=== PATIENT | female | born 1960 | race Caucasian/White ===

== ENCOUNTER → 2018-04-21 | Outpatient (CLI) | payer BC ==
[~2018-04-21] MED LIST: AMOCLA500 PO; AMOCLA875 PO; BUPR150T2; Catapres0.1 MG PO; DIVA250ER; DIVA500EC; ESTR2; HYDACE10B PO; HYDACE5 PO; LEVSOD137; LEVSOD150; LEVSOD175 PO; LEVSOD200; Lomotil Tablet1 EACH PO; META800 PO; NAPR500 PO; OXYACE5T PO; PHENA100 PO; PHENA200 PO; PROM25 PO; PROM25S PR; PSEU30 PO; Zofran Odt4 MG PO
== END ==
LOC: LAB 09:30 → LAB SHORT 09:30
DX: R53.83 Other fatigue (principal)
CPT/HCPCS: 83036

== ENCOUNTER 2018-12-09 16:20 | Observation (INO) | payer BC ==
[~2018-12-09] VITALS: Ht 154.9 cm; Wt 83.5 kg
[~2018-12-09 16:20] MED LIST changes: +LEVSOD125 PO; -LEVSOD175 PO
[2018-12-09] MEDS ORDERED: LAMO100 PO (16:37)
[2018-12-09] MEDS ORDERED: ESOM20 PO (16:37)
[2018-12-09] MEDS ORDERED: Estrace Vagin42.5 GM PV (16:38)
[2018-12-09 17:00] LABS: BASOPHILS ABSOLUTE AUTO 0.06 K/mm3 (0.00-0.23); BASOPHILS PERCENT AUTO 1 % (0-2); EOSINOPHILS ABSOLUTE AUTO 0.17 K/mm3 (0.00-0.68); EOSINOPHILS PERCENT AUTO 2 % (0-6); Hematocrit 43.3 % (33.0-51.0); Hemoglobin 13.7 g/dL (11.5-16.0); IMMATURE GRAN ABSOLUTE AUTO 0.05 K/mm3 (0.00-0.10); IMMATURE GRAN PERCENT AUTO 1 % (0-1); LYMPHOCYTES ABSOLUTE AUTO 3.49 K/mm3 (0.84-5.20); LYMPHOCYTES PERCENT AUTO 32 % (21-46); MONOCYTES ABSOLUTE AUTO 0.83 K/mm3 (0.16-1.47); MONOCYTES PERCENT AUTO 8 % (4-13); Mean Corpuscular HGB Conc 31.6 g/dL (31.5-36.5); Mean Corpuscular Volume 85 fL (80-100); NEUTROPHILS ABSOLUTE AUTO 6.49 K/mm3 (1.96-9.15); NEUTROPHILS PERCENT AUTO 59 % (41-73); Platelet Count 430 K/mm3 (150-400); RDW Coefficient Variation 13.1 % (11.7-14.2); RDW Standard Deviation 40.7 fL (35.1-46.3); Red Blood Cell Count 5.07 M/mm3 (3.80-5.20); White Blood Cell Count 11.09 K/mm3 (4.00-11.30)
[2018-12-09 17:24] LABS: Troponin I <0.015 ng/mL (0.000-0.040)
[2018-12-09 17:34] LABS: Alanine Aminotransfer (ALT/SGP 23 U/L (12-78); Albumin, Blood 4.4 g/dL (3.4-5.0); Albumin/Globulin Ratio 1.2 (0.8-1.8); Alk Phos 109 U/L (50-136); Anion Gap 6 mmol/L (6-16); Aspartate Aminotrans (AST/SGOT 6 U/L (12-37); Bilirubin, Total 0.2 mg/dL (0.1-1.0); Blood Urea Nitrogen 20 mg/dL (8-24); CO2, Blood 29 mmol/L (21-32); Calcium, Blood 9.5 mg/dL (8.5-10.1); Chloride, Blood 106 mmol/L (98-108); Creatinine, Blood 0.57 mg/dL (0.40-1.00); Globulin, Blood 3.8 g/dL (2.2-4.0); Glomerular Filtration Rate >60 (60-); Glucose, Blood 92 mg/dL (70-99); Potassium, Blood 3.8 mmol/L (3.5-5.5); Sodium, Blood 141 mmol/L (136-145); Total Protein, Blood 8.2 g/dL (6.4-8.2)
[2018-12-09 17:56] LABS: Free Thyroxine 1.35 ng/dL (0.70-1.60)
[2018-12-09 17:58] LABS: Thyroid Stimulating Hormone 0.64 uIU/mL (0.360-4.800); Triiodothyronine, Free 2.52 pg/mL (2.18-3.98)
[2018-12-09] MEDS ORDERED: Hydrocodone-Ap1 EA20 PO (18:23)
[2018-12-09] MEDS ORDERED: Bupropion HCl200 MG PO (18:24)
[2018-12-09] MEDS ORDERED: Synthroid137 MCG PO (18:24)
[2018-12-09] MEDS ORDERED: Sudogest30 MG PO (18:25)
[2018-12-09] MEDS ORDERED: Lamictal200 MG PO (18:25)
[2018-12-09] MEDS ORDERED: CYCL10 PO (18:36)
[2018-12-09] MEDS ORDERED: CONEST.625 VAG (18:43)
[2018-12-09] MEDS ORDERED: Flonase 0.05% N16 GM (18:43)
--- NOTE | 2018-12-09 22:30 | NUR ---
ADMISSION PT ARRIVES TO PCU 16 FROM ER VIA [facility]. AOX4. AMBULATES INDEPENDENTLY FROM [facility] TO HOSPITAL BED. VSS. PT DENIES DIZZINESS/LIGHTHEADEDNESS, OR DYSPNEA ON EXERTION. DENIES CHEST PAIN AT THIS TIME. REPORTS THAT CHEST PAIN HAS GONE SINCE NITRO PASTE PLACED- PATCH STILL PLACED TO L CHEST AT THIS TIME. PT REPORTING HEADACHE AND BACK PAIN AT A LEVEL 3/10 ON PAIN SCALE- REQUESTING TYLENOL FOR DISCOMFORT. LUNG SOUNDS CLEAR THROUGHOUT. O2 SATS 96% ON RA. CARDIAC RHYTHM IS NORMAL SINUS WITH RATE OF 74 PER TELEMETRY. TRACE,NON-PITTING EDEMA NOTED TO BILATERAL ANKLES. NO REDNESS OR REPORTED DISCOMFORT TO LLE AT THIS TIME. PT ORIENTED TO ROOM AND CALL LIGHT SYSTEM. ENCOURAGED TO CALL FOR ASSISTANCE WITH AMBULATION APPROPRIATE. WILL CONTINUE WITH ADMISSION AND ASSESSMENT. BED IN LOW POSITION, CALL LIGHT IN REACH.
[2018-12-10 05:19] LABS: Hematocrit 39.7 % (33.0-51.0); Hemoglobin 12.5 g/dL (11.5-16.0); Mean Corpuscular HGB 26.7 pg (26.0-34.0); Mean Corpuscular HGB Conc 31.5 g/dL (31.5-36.5); Mean Corpuscular Volume 85 fL (80-100); Platelet Count 374 K/mm3 (150-400); RDW Coefficient Variation 13.2 % (11.7-14.2); RDW Standard Deviation 40.4 fL (35.1-46.3); Red Blood Cell Count 4.69 M/mm3 (3.80-5.20); White Blood Cell Count 9.82 K/mm3 (4.00-11.30)
[2018-12-10 05:40] LABS: Anion Gap 6 mmol/L (6-16); Blood Urea Nitrogen 19 mg/dL (8-24); Bun/Creatinine Ratio 31.3 (12.0-20.0); CO2, Blood 29 mmol/L (21-32); Calcium, Blood 8.6 mg/dL (8.5-10.1); Chloride, Blood 106 mmol/L (98-108); Creatinine, Blood 0.61 mg/dL (0.40-1.00); Glomerular Filtration Rate >60 (60-); Glucose, Blood 103 mg/dL (70-99); Sodium, Blood 141 mmol/L (136-145); Troponin I <0.015 ng/mL (0.000-0.040)
--- NOTE | 2018-12-10 05:42 | NUR ---
SHIFT SUMMARY PT HAS REMAINED AOX4 THROUGHOUT SHIFT. VSS. PLEASANT AND COOPERATIVE WITH CARE. PT CONTINUES TO AMBULATE INDEPENDENTLY IN THE ROOM WITHOUT DIFFICULTY. DENIES DIZZINESS/LIGHTHEADEDNESS OR DYSPNEA ON EXERTION. DOES REPORT SOME VERY SLIGHT CHEST HEAVINESS WITH ACTIVITY THIS MORNING WHEN WALKING TO RESTROOM. NITRO BID REMOVED @ APPROXIMATELY 0530 THIS AM. PT MEDICATED ONCE FOR CHRONIC BACK PAIN WITH HOME REGIMEN. NO OTHER CHANGES NOTED FROM INITIAL ASSESSMENT. WILL CONTINUE TO MONITOR AND REPORT TO ONCOMING SHIFT RN. BED IN LOW POSITION, CALL LIGHT IN REACH.
--- NOTE | 2018-12-10 16:04 | NUR ---
1602 C/O INCREASING CHEST PRESSURE 3/10, BP 147/83, HR 73. 1 NTG SL GIVEN. 1610 C/O CHEST PRESSURE 1/10, BP 123/68, HR 69. STATES ONLY SLIGHT CHEST PAIN, DESCRIBED MILD AND DIFFUSE.
--- NOTE | 2018-12-10 18:23 | NUR ---
SHIFT SUMMARY PT RESTING IN BED THROUGHOUT THE DAY. VSS. ALERT AND ORIENTED X3. UP TO BATHROOM INDEPENDENTLY. C/O 1-06/23 CHEST TIGHTNESS / PRESSURE THIS AFTERNOON, MEDICATED WITH SL NITROGLYCERIN, WHICH RESOLVED THE PAIN. INSTRUCTED PT TO CALL IF CHEST PAIN RETURNS. NSR RATE 74 PER TELEMETRY. RESTING PORTION OF STRESS TEST COMPLETED TODAY. PT AWARE OF NEED TO BE NPO TOMORROW FOR 2ND PORTION OF STRESS TEST. WILL CONTINUE TO MONITOR.
--- NOTE | 2018-12-10 19:04 | NUR ---
Per admit trigger, I met with Caridad of offer information regarding the benefits of an Advanced Directive. She has reccently and has a blended family now. 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 Provided two information packets. She expresses a deep gabriel in God and allowed me to pray for her at bedside. I will remain available.
[2018-12-11 04:00] LABS: Hematocrit 38.7 % (33.0-51.0); Hemoglobin 12.3 g/dL (11.5-16.0); Mean Corpuscular HGB 27.3 pg (26.0-34.0); Mean Corpuscular HGB Conc 31.8 g/dL (31.5-36.5); Mean Corpuscular Volume 86 fL (80-100); Mean Platelet Volume 9.8 fL (9.1-12.4); Platelet Count 348 K/mm3 (150-400); RDW Coefficient Variation 13.1 % (11.7-14.2); RDW Standard Deviation 40.8 fL (35.1-46.3); Red Blood Cell Count 4.51 M/mm3 (3.80-5.20)
[2018-12-11 04:17] LABS: Albumin, Blood 3.7 g/dL (3.4-5.0); Anion Gap 5 mmol/L (6-16); Blood Urea Nitrogen 18 mg/dL (8-24); Bun/Creatinine Ratio 27.2 (12.0-20.0); CO2, Blood 29 mmol/L (21-32); Calcium, Blood 8.6 mg/dL (8.5-10.1); Chloride, Blood 106 mmol/L (98-108); Cholesterol 217 mg/dL (50-200); Creatinine, Blood 0.66 mg/dL (0.40-1.00); Glomerular Filtration Rate >60 (60-); Glucose, Blood 88 mg/dL (70-99); HDL Cholesterol 43 mg/dL (>39); Low Density Lipoprotein Chol 128 mg/dL (0-110); Phosphorus, Blood 3.7 mg/dL (2.5-4.9); Potassium, Blood 4.4 mmol/L (3.5-5.5); Sodium, Blood 140 mmol/L (136-145); Triglycerides 229 mg/dL (30-160); Very Low Density Lipoprot Chol 45 mg/dL (6-32)
[2018-12-11 04:22] LABS: BASOPHILS PERCENT MAN 0 % (0-2); EOSINOPHILS ABSOLUTE MAN 0.08 K/mm3 (0.00-0.68); EOSINOPHILS PERCENT MAN 1 % (0-6); LYMPHOCYTES ABSOLUTE MAN 3.74 K/mm3 (0.84-5.20); LYMPHOCYTES PERCENT MAN 44 % (21-46); MONOCYTES ABSOLUTE MAN 0.51 K/mm3 (0.16-1.47); MONOCYTES PERCENT MAN 6 % (4-13); NEUTROPHILS ABSOLUTE MAN 4.16 K/mm3 (1.96-9.15); SEG NEUTROPHILS PERCENT MAN 49 % (41-73); TOTAL CELLS COUNTED 100
--- NOTE | 2018-12-11 06:08 | NUR ---
SUMMARY NO ACUTE CHANGES NOTED FROM ASSESSMENT. PT CONTINUS TO HAVE MILD CP, SHE IS RATING IT A 1 OUT OF 10. SHE ATTEMPTED THE GI COCKTAIL IN HOPES TO TO FIND RELIEF BUT IT WAS NOT SUCCESSFUL. CP RELIEVED WITH PO NITRO. VS REMAIN STABLE. PT IS INDEPENDENT IN THE ROOM. VOIDING WNL. CALLS FOR ASSISTANCE PRN. KRZYSZTOF AND REPORT TO DAY RN. CALL LIGHT IN REACH.
--- NOTE | 2018-12-11 08:37 | NUR ---
NURSING PCU DAYSHIFT: Assumed care of pt at approx 0700. A/O, very pleasant, cooperative w/care. Denies any pain/discomfort at this time. Ambulates independently and w/o difficulty. Skin is intact w/no breakdown noted. Tele in place, NSR, no c/o CP/pressure, SBP 130's prior to a.m. meds, no noted edema. L/S cta t/o, O2 sat 99% on RA, denies dyspnea, no noted cough. Abd SNT, BT+, voiding w/o difficulty. PIV x1, s/l. Pt denies any current needs or questions regarding plan of care. 2nd portion of stress test scheduled for this afternoon, plan for NPO after breakfast. Pt OOB to shower at this time, no s/s of acute distress, cont to monitor for any changes.
--- NOTE | 2018-12-11 17:32 | NUR ---
NURSING PCU DAYSHIFT SUMMARY: Second portion of stress test completed as scheduled. Pt tolerated fairly well though reversal medication required. Pt has c/o 1-3/10 CP t/o shift which increases w/activity and improves w/rest, consistent w/pain experienced since admit. C/O occ palpitations, no changes to rhythm noted. VS have remained stable as has respiratory status. Pt OOB to shower this a.m. and has remained independent in room. S/O at bedside this afternoon, update provided. Pt currently sitting on edge of bed for supper, denies any current questions/needs. Page placed to push button switch assembler to provide update. No s/s of acute disterss at this time, call light in reach, cont to monitor until rpt is given to NOC RN.
--- NOTE | 2018-12-11 21:38 | NUR ---
PATIENT REPORTED HAVING THE FLUTTERING FEELING IN HER CHEST. FEELING THOUGH HER HEART WAS BOUNDING. LOOKED AT TELE TO SEE IF THERE WAS ANY CHANGES. PATIENT RATE WAS 66-75 IN SINUS DURING THE TIME PERIOD SHE WAS FEELING IT BOUNDING. PATIENT DENIES ANY PAIN AT THIS TIME. MOVING AROUND INDEPENDENTLY. DENIES ANY NEEDS. STATES SHE WILL NOTIFY STAFF IF SHE HAS ANY PAIN.
--- NOTE | 2018-12-12 05:11 | NUR ---
PATIENT DID NOT CALL TO REPORT ANY CHEST PAIN THROUGH THE NIGHT. WHILE TAKING MORNING VITALS PATIENT STATED THAT WHEN SHE GOT UP TO THE BATHROOM SHE WAS AWARE THERE WAS SOME DISCOMFORT IN HER CHEST BUT IT WENT AWAY ONCE LAYING BACK IN BED AND DID FEEL IT WAS STRONG ENOUGHT TO REPORT. PATIENT INDEPENDENT IN ROOM. VITALS STABLE.
--- NOTE | 2018-12-12 08:57 | NUR ---
NURSING PCU DAYSHIFT: Assumed care of pt at approx 0700. A/O, pleasant, cooperative w/care. Denies any pain/discomfort at rest. Ambulates independently in room w/o difficulty. Skin is intact w/no breakdown noted. Tele in place, NSR, SBP 120's prior to a.m. meds, no noted edema. L/S cta t/o, O2 sat mid 90's on RA, denies dyspnea, no noted cough. Abd SNT, BT hypoactive, c/o mild constipation this a.m., voiding w/o difficulty. PIV x1, s/l. Pt denies any current needs. Expressed concerns regarding CP/pressure experience w/exertion, will attempt ambulating halls this a.m. as patient has had minimal exertion in room. Awaiting rounding from PMD and claim technician, cont to monitor for changes.
[2018-12-12] MEDS ORDERED: ASPI81CH PO (16:01)
[2018-12-12] MEDS ORDERED: ATOR40TA PO (16:01)
[2018-12-12] MEDS ORDERED: METO25 PO (16:02)
[2018-12-12] MEDS ORDERED: Isosorbide Dini30 MG PO (16:02)
--- NOTE | 2018-12-12 17:16 | NUR ---
NURSING PCU DISCHARGE SUMMARY: VS remained stable t/o shift. Pt continued to experience chest pressure w/exertion, improved w/rest. After ambulation around unit, pt became diaphoretic w/nausea along w/increased pressure, again all symptoms improved w/rest. Bottom Scrubber provided w/update regarding pt's status, planned for angio this afternoon. Xfer to HC this afternoon accompanied by staff x2. Returned to room post procedure w/R radial site and arm board in place. VS stable, cardiac and respiratory status unchanged. Site stable w/no bleed or hematoma noted, recovered as per protocol. Pt cleared for discharge by cardiology, PMD updated, discharge home d/o received. Pt verbalized understanding of all written and verbal discharge instructions. PIV dc'd w/cath intact. Rx's called to [facility] per pt request. TR band to be removed at approx 1800 and pt to be discharged at that time. No s/s of acute distress, cont to monitor until discharge is complete.
== END 2018-12-12 18:20 | disposition home or self-care (01) ==
LOC: ER 16:20 → PCU 16:21
PROVIDERS: Internal Medicine; Physician Assistant; ADMIT Internal Medicine
DX: R07.89 Other chest pain (principal); R07.81 Pleurodynia; I25.10 Atherosclerotic heart disease of native coronary artery without angina pectoris; E78.5 Hyperlipidemia, unspecified; E03.9 Hypothyroidism, unspecified; K21.9 Gastro-esophageal reflux disease without esophagitis; F31.9 Bipolar disorder, unspecified; G47.33 Obstructive sleep apnea (adult) (pediatric); M54.9 Dorsalgia, unspecified; G89.4 Chronic pain syndrome; F11.90 Opioid use, unspecified, uncomplicated; E66.9 Obesity, unspecified; Z68.35 Body mass index [BMI] 35.0-35.9, adult; Z99.89 Dependence on other enabling machines and devices; Z88.1 Allergy status to other antibiotic agents; Z88.8 Allergy status to other drugs, medicaments and biological substances; Z79.899 Other long term (current) drug therapy
CPT/HCPCS: 36415; 71046; 71260; 78452; 80048; 80053; 80061; 80069; 83036; 84439; 84443; 84481; 84484; 85007; 85025; 85027; 85347; 93005; 93010; 93017; 93306; 93454; 93571; 93971; 96372; 96374; 96376; 99152; 99153; 99285-25; A9270; A9500; C1769; C1887; C1894; G0378; J0706; J1644; J1650; J2250; J2405; J2785; J3010; J7030; Q9967

== ENCOUNTER → 2020-11-01 | Outpatient (CLI) | payer BC ==
[~2020-11-01] MED LIST changes: +ASPI81CH PO; +ATOR40TA PO; +Bupropion HCl200 MG PO; +CONEST.625 VAG; +CYCL10 PO; +ESOM20 PO; +Estrace Vagin42.5 GM PV; +Flonase 0.05% N16 GM; +Hydrocodone-Ap1 EA20 PO; +Isosorbide Dini30 MG PO; +LAMO100 PO; +Lamictal200 MG PO; +METO25 PO; +Sudogest30 MG PO; +Synthroid137 MCG PO
== END | disposition home or self-care (01) ==
LOC: LAB 12:48 → LAB SHORT 12:48
DX: J02.9 Acute pharyngitis, unspecified (principal)
CPT/HCPCS: 87081

== ENCOUNTER → 2021-04-23 | Outpatient (CLI) | payer BC ==
[2021-04-23 17:04] LABS: C DIFFICILE DNA NEGATIVE (Negative)
== END | disposition home or self-care (01) ==
LOC: LAB SHORT 13:08
PROVIDERS: Physician Assistant
DX: R19.7 Diarrhea, unspecified (principal)
CPT/HCPCS: 87493

== ENCOUNTER → 2021-04-23 | Outpatient (CLI) | payer BC ==
[2021-04-23 11:47] LABS: BASOPHILS ABSOLUTE AUTO 0.04 K/mm3 (0.00-0.23); BASOPHILS PERCENT AUTO 1 % (0-2); EOSINOPHILS ABSOLUTE AUTO 0.09 K/mm3 (0.00-0.68); EOSINOPHILS PERCENT AUTO 1 % (0-6); Hematocrit 40.9 % (33.0-51.0); Hemoglobin 12.9 g/dL (11.5-16.0); IMMATURE GRAN ABSOLUTE AUTO 0.01 K/mm3 (0.00-0.10); IMMATURE GRAN PERCENT AUTO 0 % (0-1); LYMPHOCYTES ABSOLUTE AUTO 2.32 K/mm3 (0.84-5.20); LYMPHOCYTES PERCENT AUTO 34 % (21-46); MONOCYTES ABSOLUTE AUTO 0.43 K/mm3 (0.16-1.47); MONOCYTES PERCENT AUTO 6 % (4-13); Mean Corpuscular HGB 27.7 pg (26.0-34.0); Mean Corpuscular HGB Conc 31.5 g/dL (31.5-36.5); Mean Corpuscular Volume 88 fL (80-100); Mean Platelet Volume 10.3 fL (9.1-12.4); NEUTROPHILS ABSOLUTE AUTO 3.95 K/mm3 (1.96-9.15); NEUTROPHILS PERCENT AUTO 58 % (41-73); Platelet Count 391 K/mm3 (150-400); RDW Coefficient Variation 11.9 % (11.7-14.2); RDW Standard Deviation 38.1 fL (35.1-46.3); Red Blood Cell Count 4.66 M/mm3 (3.80-5.20); White Blood Cell Count 6.84 K/mm3 (4.00-11.30)
[2021-04-23 12:01] LABS: Alanine Aminotransfer (ALT/SGP 25 U/L (12-78); Albumin, Blood 3.7 g/dL (3.4-5.0); Albumin/Globulin Ratio 1.1 (0.8-1.8); Alk Phos 86 U/L (50-136); Anion Gap 5 mmol/L (6-16); Aspartate Aminotrans (AST/SGOT 13 U/L (12-37); Bilirubin, Total 0.5 mg/dL (0.1-1.0); Blood Urea Nitrogen 15 mg/dL (8-24); Bun/Creatinine Ratio 26.1 (12.0-20.0); CO2, Blood 31 mmol/L (21-32); Calcium, Blood 9.1 mg/dL (8.5-10.1); Chloride, Blood 102 mmol/L (98-108); Creatinine, Blood 0.58 mg/dL (0.40-1.00); Globulin, Blood 3.3 g/dL (2.2-4.0); Glomerular Filtration Rate >60 (60-); Glucose, Blood 88 mg/dL (70-99); Potassium, Blood 3.9 mmol/L (3.5-5.5); Sodium, Blood 138 mmol/L (136-145)
== END | disposition home or self-care (01) ==
LOC: LAB SHORT 11:00
PROVIDERS: Physician Assistant
DX: R19.7 Diarrhea, unspecified (principal)
CPT/HCPCS: 80053; 83690; 85025; 87077; 87086; 87186

== ENCOUNTER 2022-01-12 11:08 | Inpatient (IN) | payer BC ==
[~2022-01-12] VITALS: Ht 157.5 cm; Wt 66.4 kg
[~2022-01-12 11:08] MED LIST changes: +BUPROPION HCL200 M2 PO; -Bupropion HCl200 MG PO; -Hydrocodone-Ap1 EA20 PO; +LEVSOD137 PO; -Synthroid137 MCG PO
[2022-01-12 11:57] LABS: BASOPHILS ABSOLUTE AUTO 0.03 K/mm3 (0.00-0.23); BASOPHILS PERCENT AUTO 0 % (0-2); EOSINOPHILS ABSOLUTE AUTO 0.05 K/mm3 (0.00-0.68); EOSINOPHILS PERCENT AUTO 1 % (0-6); Hematocrit 38.1 % (33.0-51.0); Hemoglobin 12.6 g/dL (11.5-16.0); IMMATURE GRAN ABSOLUTE AUTO 0.03 K/mm3 (0.00-0.10); IMMATURE GRAN PERCENT AUTO 0 % (0-1); LYMPHOCYTES ABSOLUTE AUTO 1.16 K/mm3 (0.84-5.20); LYMPHOCYTES PERCENT AUTO 11 % (21-46); MONOCYTES ABSOLUTE AUTO 0.98 K/mm3 (0.16-1.47); MONOCYTES PERCENT AUTO 9 % (4-13); Mean Corpuscular HGB 28.6 pg (26.0-34.0); Mean Corpuscular HGB Conc 33.1 g/dL (31.5-36.5); Mean Corpuscular Volume 86 fL (80-100); Mean Platelet Volume 10.1 fL (9.1-12.4); NEUTROPHILS ABSOLUTE AUTO 8.58 K/mm3 (1.96-9.15); NEUTROPHILS PERCENT AUTO 79 % (41-73); Platelet Count 278 K/mm3 (150-400); RDW Coefficient Variation 12.1 % (11.7-14.2); RDW Standard Deviation 38.4 fL (35.1-46.3); Red Blood Cell Count 4.41 M/mm3 (3.80-5.20); White Blood Cell Count 10.83 K/mm3 (4.00-11.30)
[2022-01-12 13:08] LABS: Albumin, Blood 3.5 g/dL (3.4-5.0); Albumin/Globulin Ratio 0.9 (0.8-1.8); Bilirubin, Total 1.7 mg/dL (0.1-1.0); Bun/Creatinine Ratio 20.1 (12.0-20.0); Calcium, Blood 9.2 mg/dL (8.5-10.1); Creatinine, Blood 0.6 mg/dL (0.40-1.00); Globulin, Blood 3.7 g/dL (2.2-4.0); Total Protein, Blood 7.2 g/dL (6.4-8.2)
[2022-01-12 13:17] LABS: Source, Urine Clean Catch
[2022-01-12 13:36] LABS: Appearance, Urine Turbid (Clear); Blood, Urine 4+ (Neg); Color, Urine Amber (P-Yellow); Glucose Qualitative, Urine Neg (Neg); Ketones, Urine 1+ (Neg); Leukocyte Esterase, Urine 3+ (Neg); Nitrite, Urine Pos (Neg); Protein, Urine 3+ (Neg); Specific Gravity, Urine 1.005 (1.003-1.022); Urobilinogen, Urine 2+ (Normal)
[2022-01-12 13:52] LABS: Bilirubin, Urine 2+ (Neg)
[2022-01-12 13:53] LABS: White Blood Cells, Urine TNTC /hpf (0-5)
[2022-01-12 13:56] LABS: Amorphous Light (0-Heavy); Bacteria Many /hpf; Squamous Epithelial Cells Few /hpf (Few)
[2022-01-12] MEDS ORDERED: L-METHYLFOLATE7.5 MG PO (16:00)
[2022-01-12] MEDS ORDERED: Amitriptyline H50 MG PO (16:01)
[2022-01-12 21:18] LABS: Thyroid Stimulating Hormone <0.005 uIU/mL (0.360-4.800)
[2022-01-13 04:09] LABS: Hematocrit 27.4 % (33.0-51.0); Hemoglobin 8.7 g/dL (11.5-16.0); Mean Corpuscular HGB 28.6 pg (26.0-34.0); Mean Corpuscular HGB Conc 31.8 g/dL (31.5-36.5); Mean Corpuscular Volume 90 fL (80-100); Mean Platelet Volume 10.3 fL (9.1-12.4); Platelet Count 199 K/mm3 (150-400); RDW Coefficient Variation 12.5 % (11.7-14.2); RDW Standard Deviation 40.8 fL (35.1-46.3); Red Blood Cell Count 3.04 M/mm3 (3.80-5.20)
--- NOTE | 2022-01-13 04:30 | NUR ---
ARRIVAL TO ICU PT BROUGHT TO ICU 16 VIA WHEELCHAIR. SHE IS A STANDBY ASSIST. CURRENTLY RECEIVING NS 150ML/HR. A&OX4. LUNGS CLEAR THROUGHOUT. SHE IS ON RA WITH SPO2 >95%. BOWEL TONES HYPOACTIVE, ABDOMEN TENDER. C/O 4/10 FLANK PAIN. NSR WITH RATE 80S-90S. MAP <65, WILL START LEVOPHED WHEN IT ARRIVES FROM PHARMACY. PROVIDED ICE WATER AND APPLE JUICE. BED IN LOW POSITION, CALL LIGHT WITHIN REACH.
--- NOTE | 2022-01-13 04:39 | NUR ---
PT. TRANSFERRED TO ICU FOR BLOOD PRESSURE SUPPORT. REPORT GIVEN TO RHONDA CUEVA
[2022-01-13 04:40] LABS: Bun/Creatinine Ratio 21.8 (12.0-20.0); Calcium, Blood 7.4 mg/dL (8.5-10.1); Creatinine, Blood 0.64 mg/dL (0.40-1.00); Potassium, Blood 4.1 mmol/L (3.5-5.5)
--- NOTE | 2022-01-13 06:29 | NUR ---
SHIFT SUMMARY PT RECEIVING LEVOPHED 2MCG/MIN AND NS 150ML/HR. A&OX4 WITH VERY PLEASANT AFFECT. PARTICIPATES IN CONVERSATION AND CARE. C/O HEADACHE. LUNGS CLEAR THROUGHOUT, ON RA WITH SPO2 >95%. NSR ON MONITOR WITH RATE 80S-90S, INCREASES TO 100S WITH EXCERTION. LEVOPHED AT 2MCG/MIN TO MAINTAIN MAP >65. PT CONTINUES TO HAVE ABDOMINAL AND FLANK PAIN. BOWEL TONES HYPOACTIVE, ABDOMEN TENDER. PT ASSISTED TO BEDSIDE COMMODE ONCE. PT HAS DIFFICULTY BEGINNING URINE STREAM, OCCASIONAL DISCOMFORT. VOIDED 200ML SIMIN/CLOUDY URINE WITH FOUL ODOR. BED IN LOW POSITION. CALL LIGHT WITHIN REACH.
--- NOTE | 2022-01-13 07:14 | NUR ---
ASSUME CARE: I have assumed care of this patient.
--- NOTE | 2022-01-13 10:10 | NUR ---
Spiritual Care Attempted. Pt. is awake and is pleasant. Spouse is present. Pt. verbalizes that she is "feeling foggy" and declines spiritual care at this time. Will remain available to the Pt. throughout the day.
--- NOTE | 2022-01-13 19:08 | NUR ---
SHIFT SUMMARY: pt status changed to PCU this morning. NEURO: WNL CARDIAC: levophed titrated off this morning. Morning metoprolol dose of held. NSR. RESPIRATORY: CTA on RA GI/: pt up to bedside commode several times independantly. reports frequency and urgency which was improved with one dose PRN pyridium. loose BM this AM SKIN: no breakdown noted. pt to shower today. PSYCH/SOCIAL: family at bedside and supportive.
--- NOTE | 2022-01-14 01:53 | NUR ---
PT. TRANSFERRED DOWN TO MEDICAL FLOOR ROOM 331 WITH [facility] MONITOR IN PLACE.
--- NOTE | 2022-01-14 02:19 | NUR ---
PT ARRIVED TO ROOM VIA BED FROM ICU IN STABLE CONDITION. PT TRANSFERRED INDEPENDENTLY FROM BED TO BED EASILY. PT REPORTS PAIN IN LOWER BACK, FLANKS, BLADDER AREA, AREA BY R KIDNEY, OF 6-7/10. TOLERABLE PAIN LEVEL FOR HER IS A 3/10. SHE DESCRIBES THE PAIN DULL IN THE BACK AREAS BUT SHARP IN THE FRONT AREAS. WILL UPDATE PRIMARY RN AND EVAL FOR EFFECTIVENESS. PT DENIES NEED FOR ANYTHING AT THIS TIME. NO OTHER APPARENT SIGNS OF DISTRESS. CALL LIGHT IS IN REACH.
--- NOTE | 2022-01-14 02:47 | NUR ---
THIS RN ASSUMED CARE OF PT. NO CONCERNS AT THIS TIME. CALL LIGHT WITHIN REACH. PT AGREES TO CALL WITH QUESTIONS, CONCERNS OR NEEDS.
--- NOTE | 2022-01-14 04:49 | NUR ---
CHARGE COORDINATOR SUMMARY A&Ox4. PLEASANT AND COOPERATIVE WITH CARE. SLEPT MOST OF SHIFT FOLLOWING TRANSFER TO THIS UNIT. PRN NORCO GIVEN UPON ARRIVAL FOR C/O PAIN IN FLANK AND PELVIC REGION R/T UTI. NO ACUTE CONCERNS TONIGHT. WILL REPORT TO ONCOMING RN.
[2022-01-14 05:28] LABS: Hematocrit 29.8 % (33.0-51.0); Hemoglobin 9.1 g/dL (11.5-16.0); Mean Corpuscular HGB 27.9 pg (26.0-34.0); Mean Corpuscular HGB Conc 30.5 g/dL (31.5-36.5); Mean Corpuscular Volume 91 fL (80-100); Mean Platelet Volume 10.4 fL (9.1-12.4); Platelet Count 200 K/mm3 (150-400); RDW Coefficient Variation 12.7 % (11.7-14.2); RDW Standard Deviation 42.5 fL (35.1-46.3); Red Blood Cell Count 3.26 M/mm3 (3.80-5.20); White Blood Cell Count 7.73 K/mm3 (4.00-11.30)
[2022-01-14 05:52] LABS: Albumin, Blood 2.5 g/dL (3.4-5.0); Albumin/Globulin Ratio 0.8 (0.8-1.8); Bilirubin, Total 0.6 mg/dL (0.1-1.0); Bun/Creatinine Ratio 11.7 (12.0-20.0); Creatinine, Blood 0.51 mg/dL (0.40-1.00); Percent Saturation 9.7 % (15.0-50.0); Potassium, Blood 3.5 mmol/L (3.5-5.5); Total Protein, Blood 5.5 g/dL (6.4-8.2)
[2022-01-14] MEDS ORDERED: CEFD300 PO (11:11)
--- NOTE | 2022-01-14 13:22 | NUR ---
DISCHARGE SUMMARY: PT A&O X4 AND PLEASANT. PT TELE AND IV REMOVED WITHOUT DIFFULTY. PT GOT DRESS INDEPENDANTLY. PT PACKED UP HER OWN BELONGINGS. PT WAS EXCORTED BY SIRIA ELLIS VIA WHEELCHAIR TO THE LOBBY. PT WAS TRANSPORTED BY HER . PT EDUCATED OF CONTIUNING HER ANTIBIOTICS AND TAKING PERSCRIBED. PT EDUCATED ON PYELONEPHRITIS, SIGNS AND SYMPTOMS AND TO RETURN IF SYMPTOMS WORSEN.
--- NOTE | 2022-01-14 13:33 | NUR ---
THIS [employer]ODITY [employer]CHANT REVIEWED ALL NOTES AND ASSESSMETNTS BY RHONDA WALKER AND AGREES WITH THEM.
== END 2022-01-14 12:09 | disposition home or self-care (01) | DRG 872 ==
LOC: ER 11:08 → PCU 20:18 → ICUW 01-13 04:30 → MEDS 01-14 01:59
PROVIDERS: Internal Medicine; Physician Assistant; ADMIT Internal Medicine
PROC: 3E03329 Introduction of Other Anti-infective into Peripheral Vein, Percutaneous Approach (ICD-10-PCS; principal; 2022-01-12)
PROC: 3E033XZ Introduction of Vasopressor into Peripheral Vein, Percutaneous Approach (ICD-10-PCS; 2022-01-12)
DX: A41.51 Sepsis due to Escherichia coli [E. coli] (principal); N10 Acute pyelonephritis; K21.9 Gastro-esophageal reflux disease without esophagitis; E06.3 Autoimmune thyroiditis; F32.A Depression, unspecified; E78.5 Hyperlipidemia, unspecified; R74.01 Elevation of levels of liver transaminase levels; E03.9 Hypothyroidism, unspecified; G89.29 Other chronic pain; D64.9 Anemia, unspecified; M54.9 Dorsalgia, unspecified; Z98.890 Other specified postprocedural states; Z88.1 Allergy status to other antibiotic agents; Z79.899 Other long term (current) drug therapy
CPT/HCPCS: 36415; 74177; 76705; 80048; 80053; 81001; 82728; 82947; 83540; 83550; 83605; 84439; 84443; 84484; 85025; 85027; 87040; 87077; 87086; 87186; 93005; 93010; 96374; 96375; 96376; 99285-25; A9270; J0696; J1650; J1885; J2270; J2405; J3010; J7030; J7040; J7060; Q9967

== ENCOUNTER 2022-01-18 19:20 | Emergency (ER) | payer BC ==
[~2022-01-18] VITALS: Ht 157.5 cm; Wt 61.2 kg
[~2022-01-18 19:20] MED LIST changes: +Amitriptyline H50 MG PO; +CEFD300 PO; +L-METHYLFOLATE7.5 MG PO
[2022-01-18 20:48] LABS: BASOPHILS ABSOLUTE AUTO 0.03 K/mm3 (0.00-0.23); BASOPHILS PERCENT AUTO 0 % (0-2); EOSINOPHILS ABSOLUTE AUTO 0.13 K/mm3 (0.00-0.68); EOSINOPHILS PERCENT AUTO 2 % (0-6); Hematocrit 38.3 % (33.0-51.0); Hemoglobin 12.3 g/dL (11.5-16.0); IMMATURE GRAN ABSOLUTE AUTO 0.07 K/mm3 (0.00-0.10); IMMATURE GRAN PERCENT AUTO 1 % (0-1); LYMPHOCYTES ABSOLUTE AUTO 2.15 K/mm3 (0.84-5.20); LYMPHOCYTES PERCENT AUTO 30 % (21-46); MONOCYTES ABSOLUTE AUTO 0.58 K/mm3 (0.16-1.47); MONOCYTES PERCENT AUTO 8 % (4-13); Mean Corpuscular HGB 28.6 pg (26.0-34.0); Mean Corpuscular HGB Conc 32.1 g/dL (31.5-36.5); Mean Corpuscular Volume 89 fL (80-100); Mean Platelet Volume 9.2 fL (9.1-12.4); NEUTROPHILS ABSOLUTE AUTO 4.28 K/mm3 (1.96-9.15); NEUTROPHILS PERCENT AUTO 59 % (41-73); Platelet Count 512 K/mm3 (150-400); RDW Coefficient Variation 12.2 % (11.7-14.2); RDW Standard Deviation 38.9 fL (35.1-46.3); White Blood Cell Count 7.24 K/mm3 (4.00-11.30)
[2022-01-18 21:29] LABS: Albumin, Blood 3.2 g/dL (3.4-5.0); Albumin/Globulin Ratio 0.8 (0.8-1.8); Bilirubin, Total 0.4 mg/dL (0.1-1.0); Bun/Creatinine Ratio 22.3 (12.0-20.0); Calcium, Blood 9.2 mg/dL (8.5-10.1); Creatinine, Blood 0.76 mg/dL (0.40-1.00); Potassium, Blood 4.1 mmol/L (3.5-5.5); Total Protein, Blood 7.2 g/dL (6.4-8.2)
[2022-01-18 23:16] LABS: Source, Urine Clean Catch
[2022-01-18 23:20] LABS: Blood, Urine Neg (Neg); Glucose Qualitative, Urine Neg (Neg); Ketones, Urine 1+ (Neg); Leukocyte Esterase, Urine 1+ (Neg); Nitrite, Urine Pos (Neg); Protein, Urine 1+ (Neg); Specific Gravity, Urine 1.015 (1.003-1.022); Urobilinogen, Urine 3+ (Normal)
[2022-01-18 23:30] LABS: Appearance, Urine Hazy (Clear); Bilirubin, Urine 3+ (Neg); Color, Urine Orange (P-Yellow)
[2022-01-18 23:31] LABS: Amorphous Light (0-Heavy); Bacteria Few /hpf; Red Blood Cells, Urine Not Seen /hpf (0-2); Squamous Epithelial Cells Rare /hpf (Few)
[2022-01-19] MEDS ORDERED: METO25ER PO (00:38)
[2022-01-19] MEDS ORDERED: LEVO750 PO (01:28)
[2022-01-19] MEDS ORDERED: ONDA4ODT MM (01:33)
[2022-01-19] MEDS ORDERED: FLUC200 PO (01:33)
== END 2022-01-19 02:27 | disposition home or self-care (01) ==
LOC: ER 19:20
PROVIDERS: Physician Assistant
DX: N12 Tubulo-interstitial nephritis, not specified as acute or chronic (principal); R11.2 Nausea with vomiting, unspecified; K21.9 Gastro-esophageal reflux disease without esophagitis; Z88.1 Allergy status to other antibiotic agents; Z79.899 Other long term (current) drug therapy
CPT/HCPCS: 74177; 76705; 80053; 81001; 83690; 85025; 87086; 96374-59; 96375; 99284-25; A9270; J1885; J2405; J7030; Q9967

== ENCOUNTER → 2023-04-10 | Outpatient (CLI) | payer BC ==
[~2023-04-10] MED LIST changes: +FLUC200 PO; +LEVO750 PO; +METO25ER PO; +ONDA4ODT MM
[2023-04-10 23:20] LABS: Candida species (DNA Probe) Negative (NEGATIVE); G. vaginalis (DNA Probe) Negative (NEGATIVE); T. vaginalis (DNA Probe) Negative (NEGATIVE)
== END | disposition home or self-care (01) ==
LOC: LAB SHORT 21:43 → LAB 21:43
PROVIDERS: Physician Assistant
DX: N76.0 Acute vaginitis (principal); R30.0 Dysuria
CPT/HCPCS: 87077; 87086; 87186; 87480; 87510; 87660

== ENCOUNTER 2023-11-05 06:21 | Emergency (ER) | payer BC ==
[~2023-11-05] VITALS: Ht 157.5 cm; Wt 58.1 kg
[2023-11-05 07:18] LABS: BASOPHILS ABSOLUTE AUTO 0.03 K/mm3 (0.00-0.23); BASOPHILS PERCENT AUTO 0 % (0-2); EOSINOPHILS ABSOLUTE AUTO 0.13 K/mm3 (0.00-0.68); EOSINOPHILS PERCENT AUTO 2 % (0-6); Hematocrit 45.9 % (33.0-51.0); IMMATURE GRAN ABSOLUTE AUTO 0.02 K/mm3 (0.00-0.10); IMMATURE GRAN PERCENT AUTO 0 % (0-1); LYMPHOCYTES ABSOLUTE AUTO 2.05 K/mm3 (0.84-5.20); LYMPHOCYTES PERCENT AUTO 24 % (21-46); MONOCYTES ABSOLUTE AUTO 0.64 K/mm3 (0.16-1.47); MONOCYTES PERCENT AUTO 8 % (4-13); Mean Corpuscular HGB 27.9 pg (26.0-34.0); Mean Corpuscular HGB Conc 32.7 g/dL (31.5-36.5); Mean Corpuscular Volume 85 fL (80-100); Mean Platelet Volume 9.9 fL (9.1-12.4); NEUTROPHILS ABSOLUTE AUTO 5.62 K/mm3 (1.96-9.15); NEUTROPHILS PERCENT AUTO 66 % (41-73); Platelet Count 385 K/mm3 (150-400); RDW Coefficient Variation 11.7 % (11.7-14.2); RDW Standard Deviation 36.4 fL (35.1-46.3); Red Blood Cell Count 5.38 M/mm3 (3.80-5.20); White Blood Cell Count 8.49 K/mm3 (4.00-11.30)
[2023-11-05 07:33] LABS: Albumin, Blood 4.4 g/dL (3.4-5.0); Albumin/Globulin Ratio 1.2 (0.8-1.8); Bilirubin, Total 0.4 mg/dL (0.1-1.0); Bun/Creatinine Ratio 32.5 (12.0-20.0); Calcium, Blood 9.7 mg/dL (8.5-10.1); Creatinine, Blood 0.65 mg/dL (0.40-1.00); Globulin, Blood 3.8 g/dL (2.2-4.0); Potassium, Blood 4.3 mmol/L (3.5-5.5); Total Protein, Blood 8.2 g/dL (6.4-8.2)
[2023-11-05] MEDS ORDERED: Ondansetron HCl 2 MG / ML 2ML Vial IV ONE (07:35)
[2023-11-05] MEDS ORDERED: NS 1,000 ML IV SCH (07:35)
[2023-11-05 08:20] LABS: Source, Urine Clean Catch
[2023-11-05 08:25] LABS: Appearance, Urine Hazy (Clear); Blood, Urine 1+ (Neg); Color, Urine Yellow (P-Yellow); Glucose Qualitative, Urine Neg (Neg); Ketones, Urine 1+ (Neg); Leukocyte Esterase, Urine 3+ (Neg); Nitrite, Urine Neg (Neg); Protein, Urine 2+ (Neg); Specific Gravity, Urine 1.025 (1.003-1.022); Urobilinogen, Urine 1+ (Normal)
[2023-11-05 08:31] LABS: Bilirubin, Urine 1+ (Neg)
[2023-11-05 08:33] LABS: Bacteria Many /hpf; Calcium Oxalate Crystals Few /hpf; Mucus Mod (0-Heavy); Squamous Epithelial Cells Few /hpf (Few)
[2023-11-05] MEDS ORDERED: Trimethoprim/Sulfamethoxazole DS Tab PO ONE (09:45)
[2023-11-05] MEDS ORDERED: SULTRIDS PO (09:49)
[2023-11-05] MEDS ORDERED: Pyridium100 MG PO (09:49)
[2023-11-05 10:53] VITALS: BP 132/74
== END 2023-11-05 10:58 | disposition home or self-care (01) ==
LOC: ER 06:21
PROVIDERS: Student in an Organized Health Care Education/Training Program
DX: N39.0 Urinary tract infection, site not specified (principal); E86.0 Dehydration; K21.9 Gastro-esophageal reflux disease without esophagitis; Z88.1 Allergy status to other antibiotic agents; Z88.8 Allergy status to other drugs, medicaments and biological substances; Z79.890 Hormone replacement therapy; Z79.899 Other long term (current) drug therapy
CPT/HCPCS: 74177; 80053; 81001; 83690; 83735; 84484; 85025; 87077; 87086; 87186; 93005; 93010; 96361; 96374-59; 99284-25; A9270; J2405; J7030; Q9967